=== PATIENT | male | born 1965 | race African-American/Black ===

== ENCOUNTER 2016-12-09 15:17 | Emergency (ER) | payer OTHER ==
[~2016-12-09] VITALS: Ht 190.5 cm; Wt 113.6 kg
[~2016-12-09 15:17] MED LIST: AMLO-512 PO; FLEC100 PO; HYDR-3965 PO; HYDR25TA PO; IBUP-2070 PO; LISI-661 PO; STEROIDS INJ
[2016-12-09] MEDS ORDERED: KETOROLAC TROMETHAMINE 60 MG/2 ML VIAL IM ONE (17:15)
[2016-12-09] MEDS ORDERED: HYDROCODONE/ACETAMINOPHEN 10-325 MG TABLET PO ONE (17:15)
[2016-12-09 18:36] VITALS: BP 141/82
== END 2016-12-09 19:01 | disposition home or self-care (01) ==
LOC: EMS 15:18
DX: M54.41 Lumbago with sciatica, right side (principal); M54.42 Lumbago with sciatica, left side; I10 Essential (primary) hypertension; E78.00 Pure hypercholesterolemia, unspecified
CPT/HCPCS: 96372; 99283; J1885

== ENCOUNTER 2017-01-02 05:41 | Emergency (ER) | payer OTHER ==
[~2017-01-02] VITALS: Ht 190.5 cm; Wt 111.4 kg
[2017-01-02] MEDS ORDERED: KETOROLAC TROMETHAMINE 60 MG/2 ML VIAL IM ONE (07:00)
[2017-01-02] MEDS ORDERED: OxyCODONE HCL/ACETAMINOPHEN 5-325 MG TABLET PO ONE (07:00)
[2017-01-02 07:09] VITALS: BP 132/83
== END 2017-01-02 07:25 | disposition home or self-care (01) ==
LOC: EMS 05:42
DX: T78.40XA Allergy, unspecified, initial encounter (principal); M54.41 Lumbago with sciatica, right side; G89.29 Other chronic pain; E78.00 Pure hypercholesterolemia, unspecified; I10 Essential (primary) hypertension; Z95.0 Presence of cardiac pacemaker
CPT/HCPCS: 96372; 99283; J1885

== ENCOUNTER 2017-08-25 09:09 | Emergency (ER) | payer OTHER ==
[~2017-08-25] VITALS: Ht 190.5 cm; Wt 111.0 kg
[2017-08-25] MEDS ORDERED: QUET200T PO (09:18)
[2017-08-25] MEDS ORDERED: KETOROLAC TROMETHAMINE 60 MG/2 ML VIAL IM ONE (10:30)
[2017-08-25 12:04] VITALS: BP 124/69
== END 2017-08-25 12:19 | disposition home or self-care (01) ==
LOC: EMS 09:10
DX: S62.637A Displaced fracture of distal phalanx of left little finger, initial encounter for closed fracture (principal); M25.511 Pain in right shoulder; I10 Essential (primary) hypertension; E78.00 Pure hypercholesterolemia, unspecified; Y04.0XXA Assault by unarmed brawl or fight, initial encounter; Y93.89 Activity, other specified; Y92.89 Other specified places as the place of occurrence of the external cause; Y99.8 Other external cause status
CPT/HCPCS: 29130; 73140; 96372; 99284; J1885

== ENCOUNTER 2018-01-28 03:13 | Emergency (ER) | payer OTHER ==
[~2018-01-28] VITALS: Ht 188 cm; Wt 104.5 kg
[~2018-01-28 03:13] MED LIST changes: -HYDR-3965 PO; -IBUP-2070 PO; +QUET200T PO; -STEROIDS INJ
[2018-01-28 03:15] VITALS: BP 117/77
[2018-01-28] MEDS ORDERED: ACETAMINOPHEN 500 MG TABLET PO ONE (03:30)
== END 2018-01-28 04:19 | disposition home or self-care (01) ==
LOC: EMS 03:15
DX: J02.9 Acute pharyngitis, unspecified (principal); M54.2 Cervicalgia; G89.29 Other chronic pain; E78.00 Pure hypercholesterolemia, unspecified; I10 Essential (primary) hypertension; Z95.0 Presence of cardiac pacemaker
CPT/HCPCS: 99283

== ENCOUNTER 2018-10-19 16:14 | Emergency (ER) | payer OTHER ==
[~2018-10-19] VITALS: Ht 190.5 cm; Wt 101.4 kg
[2018-10-19] MEDS ORDERED: DiphenhydrAMINE HCL 25 MG CAPSULE PO ONE (21:15)
[2018-10-19] MEDS ORDERED: ACETAMINOPHEN 500 MG TABLET PO ONE (21:15)
[2018-10-19 21:52] VITALS: BP 124/72
== END 2018-10-19 22:00 | disposition home or self-care (01) ==
LOC: EMS 16:16
DX: S76.912A Strain of unspecified muscles, fascia and tendons at thigh level, left thigh, initial encounter (principal); E78.00 Pure hypercholesterolemia, unspecified; I10 Essential (primary) hypertension; G89.29 Other chronic pain; Z95.0 Presence of cardiac pacemaker; Z79.899 Other long term (current) drug therapy; X58.XXXA Exposure to other specified factors, initial encounter; Y93.01 Activity, walking, marching and hiking; Y92.89 Other specified places as the place of occurrence of the external cause; Y99.8 Other external cause status
CPT/HCPCS: 93971

== ENCOUNTER 2021-02-08 18:47 | Emergency (ER) | payer OTHER ==
[~2021-02-08] VITALS: Ht 188 cm; Wt 109.1 kg
[~2021-02-08 18:47] MED LIST changes: +AMLO-258 PO; -AMLO-512 PO; -HYDR25TA PO; +HYDR25TA2 PO; -LISI-661 PO; +LISI-893 PO
[2021-02-08 20:05] LABS: EOSINOPHILS % (AUTO) 6.4 % (1.0-6.0); HEMATOCRIT 39.3 % (41-53); HEMOGLOBIN 12.7 g/dL (13.5-17.5); LYMPHOCYTES # (AUTO) 1.8 K/uL (1.0-4.8); LYMPHOCYTES % (AUTO) 31.2 % (22.0-44.0); MEAN CORPUSCULAR HEMOGLOBIN 25.3 pg (26.0-34.0); MEAN CORPUSCULAR HGB CONC 32.4 G/dL (31.0-37.0); MEAN CORPUSCULAR VOLUME 78 fL (80-100); MONOCYTES # (AUTO) 0.5 K/uL (0.1-1.0); MONOCYTES % (AUTO) 9.2 % (2.0-9.0); NEUTROPHILS % (AUTO) 52.2 % (40.0-70.0); PLATELET COUNT (AUTO) 255 K/uL (150-450); RED BLOOD CELL COUNT(AUTO) 5.04 MIL/uL (4.50-5.90); RED CELL DISTRIBUTION WIDTH 15.1 % (11.5-14.5)
[2021-02-08 20:07] LABS: APPEARANCE,URINE CLEAR (CLEAR); BILIRUBIN,URINE NEGATIVE (NEGATIVE); GLUCOSE, URINE (UA) NEGATIVE (NEGATIVE); KETONES,URINE NEGATIVE (NEGATIVE); LEUKOCYTE ESTERASE ,URINE NEGATIVE (NEGATIVE); NITRATE,URINE NEGATIVE (NEGATIVE); OCCULT BLOOD,URINE NEGATIVE (NEGATIVE); PROTEIN,URINE NEGATIVE (NEGATIVE)
[2021-02-08 20:16] LABS: ANION GAP 8 mmol/L (8-16); CALCIUM, TOTAL 9.1 mg/dL (8.8-10.5); CARBON DIOXIDE 29 mmol/L (22-29); CHLORIDE 104 mmol/L (98-107); CREATININE 1.12 mg/dL (0.60-1.30); GLOMERULAR FILTR. RATE CALC > 60 mL/min (>60); GLUCOSE,RANDOM 115 mg/dL (70-110); POTASSIUM 3.7 mmol/L (3.5-5.1); SODIUM SERUM 141 mmol/L (136-145); UREA NITROGEN, BLOOD 11 mg/dL (7-18)
[2021-02-08 20:24] LABS: ALANINE AMINOTRANSFERASE 29 U/L (12-78); ALBUMIN 3.6 g/dL (3.4-5.0); ALKALINE PHOSPHATASE 68 U/L (46-116); ASPARTATE AMINOTRANSFERASE 13 U/L (15-37); BILIRUBIN,TOTAL 0.2 mg/dL (0.1-1.0); LIPASE 122 U/L (73-393); TOTAL PROTEIN, SERUM 7.6 g/dL (6.4-8.2)
[2021-02-08 22:23] VITALS: BP 139/77
== END 2021-02-08 22:36 | disposition home or self-care (01) ==
LOC: EMS 18:48
DX: R19.7 Diarrhea, unspecified (principal); I10 Essential (primary) hypertension; E78.00 Pure hypercholesterolemia, unspecified; G89.29 Other chronic pain; Z79.899 Other long term (current) drug therapy
CPT/HCPCS: 80053; 81003; 83690; 85025; 87045; 89055; 99283

== ENCOUNTER 2022-01-21 12:00 | Emergency (ER) | payer OTHER ==
[~2022-01-21] VITALS: Ht 190.5 cm; Wt 122.7 kg
[~2022-01-21 12:00] MED LIST changes: +HYDR-4870 PO; -HYDR25TA2 PO
[2022-01-21] MEDS ORDERED: CLIN50GE6 TP (12:53)
[2022-01-21 13:34] VITALS: BP 128/86
== END 2022-01-21 13:36 | disposition home or self-care (01) ==
LOC: EMS 12:03
DX: L08.0 Pyoderma (principal); E78.00 Pure hypercholesterolemia, unspecified; I10 Essential (primary) hypertension; R21 Rash and other nonspecific skin eruption; Z95.2 Presence of prosthetic heart valve
CPT/HCPCS: 99283; Z7502

== ENCOUNTER 2022-09-25 23:18 | Emergency (ER) | payer OTHER ==
[~2022-09-25] VITALS: Ht 190.5 cm; Wt 125.5 kg
[~2022-09-25 23:18] MED LIST changes: +ASPI-1450 PO; +ATOR40TA28 PO; +BUPR1PAT3 TP; +CEPH-558 PO; -FLEC100 PO; +FLUT16SP NASAL; -HYDR-4870 PO; -LISI-893 PO; +METO25 PO; +SILD20TA PO
[2022-09-25] MEDS ORDERED: SODIUM CHLORIDE 0.9% 1,000 ML IV ONE (23:45)
[2022-09-25] MEDS ORDERED: ONDANSETRON HCL 4 MG/2 ML VIAL IVP ONE (23:45)
[2022-09-26 00:02] LABS: COVID AG,FIA SOURCE NASAL SWAB
[2022-09-26 00:32] LABS: INFLUENZA TYPE A NEGATIVE FOR TYPE A (NEGATIVE); INFLUENZA TYPE B NEGATIVE FOR TYPE B (NEGATIVE)
[2022-09-26 00:50] LABS: BASOPHILS % (AUTO) 0.8 % (0.0-2.0); EOSINOPHILS % (AUTO) 0.2 % (1.0-6.0); HEMATOCRIT 37.7 % (41-53); HEMOGLOBIN 12.5 g/dL (13.5-17.5); LYMPHOCYTES # (AUTO) 1.2 K/uL (1.0-4.8); LYMPHOCYTES % (AUTO) 14.9 % (22.0-44.0); MEAN CORPUSCULAR HEMOGLOBIN 26.3 pg (26.0-34.0); MEAN CORPUSCULAR HGB CONC 33.3 G/dL (31.0-37.0); MEAN CORPUSCULAR VOLUME 79 fL (80-100); MONOCYTES # (AUTO) 0.4 K/uL (0.1-1.0); MONOCYTES % (AUTO) 4.7 % (2.0-9.0); NEUTROPHILS # (AUTO) 6.3 K/uL (1.8-7.7); NEUTROPHILS % (AUTO) 79.4 % (40.0-70.0); PLATELET COUNT (AUTO) 252 K/uL (150-450); RED BLOOD CELL COUNT(AUTO) 4.77 MIL/uL (4.50-5.90); RED CELL DISTRIBUTION WIDTH 16.1 % (11.5-14.5)
[2022-09-26 00:59] LABS: CARBON DIOXIDE 27 mmol/L (22-29); CHLORIDE 105 mmol/L (98-107); POTASSIUM 3.9 mmol/L (3.5-5.1); SODIUM SERUM 143 mmol/L (136-145)
[2022-09-26 01:00] LABS: ANION GAP 11 mmol/L (8-16); CALCIUM, TOTAL 9.6 mg/dL (8.8-10.5); CREATININE 1.28 mg/dL (0.60-1.30); GLOMERULAR FILTR. RATE CALC > 60 mL/min (>60); GLUCOSE,RANDOM 112 mg/dL (70-110); UREA NITROGEN, BLOOD 9 mg/dL (7-18)
[2022-09-26 01:04] LABS: ALANINE AMINOTRANSFERASE 33 U/L (12-78); ALBUMIN 3.8 g/dL (3.4-5.0); ALKALINE PHOSPHATASE 68 U/L (46-116); ASPARTATE AMINOTRANSFERASE 20 U/L (15-37); BILIRUBIN,TOTAL 0.4 mg/dL (0.1-1.0); LIPASE 70 U/L (73-393); TOTAL PROTEIN, SERUM 8.4 g/dL (6.4-8.2)
[2022-09-26] MEDS ORDERED: ONDANSETRON HCL 4 MG/2 ML VIAL IVP ONE (02:00)
[2022-09-26 02:17] LABS: APPEARANCE,URINE CLEAR (CLEAR); BILIRUBIN,URINE NEGATIVE (NEGATIVE); GLUCOSE, URINE (UA) NEGATIVE (NEGATIVE); KETONES,URINE TRACE mg/dL (NEGATIVE); LEUKOCYTE ESTERASE ,URINE NEGATIVE (NEGATIVE); NITRATE,URINE NEGATIVE (NEGATIVE); OCCULT BLOOD,URINE SMALL (NEGATIVE); PROTEIN,URINE 100-200,SEE CONFIRM mg/dL (NEGATIVE); UROBILINOGEN,URINE <=1.0 mg/dL (<=1.0)
[2022-09-26 02:23] LABS: SULFOSALICYLIC ACID,URINE 1+ (Negative)
[2022-09-26 02:26] LABS: BACTERIA,URINE None Seen /HPF (None Seen); RBC,URINE 0-2 /HPF (0-2); SQUAMOUS EPITHELIAL CELL,UR None Seen /LPF (None Seen); WBC,URINE None Seen /HPF (0-5)
[2022-09-26 03:13] VITALS: BP 148/71
[2022-09-26] MEDS ORDERED: PROM-163 PO (03:14)
== END 2022-09-26 04:05 | disposition home or self-care (01) ==
LOC: EMS 23:18
DX: R11.2 Nausea with vomiting, unspecified (principal); E78.00 Pure hypercholesterolemia, unspecified; I10 Essential (primary) hypertension; G89.29 Other chronic pain; Z96.652 Presence of left artificial knee joint; Z98.890 Other specified postprocedural states; Z20.822 Contact with and (suspected) exposure to COVID-19
CPT/HCPCS: 99285; 96374; 96361; 87426; 80053; 81001; 83690; 84484; 85025; 87804; 36415; 93005; 96376; 76700; J2405; 81002

== ENCOUNTER 2023-12-20 11:03 | Emergency (ER) | payer OTHER ==
[~2023-12-20] VITALS: Ht 190.5 cm; Wt 113.6 kg
[~2023-12-20 11:03] MED LIST changes: +AMOX1TAB16 PO; +ASPI-1444 PO; -ASPI-1450 PO; +BUPR1PAT3 TD; -BUPR1PAT3 TP; -CEPH-558 PO; +FLEC50 PO; +HYDR-4069 PO; +METR500 PO; +NALO4SPR5 NASAL; +SERT-439 PO
[2023-12-20 11:07] VITALS: BP 130/71; PULSE 94; RESP 16; TEMP 98
== END 2023-12-20 15:21 | disposition home or self-care (01) ==
LOC: EMS 11:03
DX: S00.83XA Contusion of other part of head, initial encounter (principal); M19.90 Unspecified osteoarthritis, unspecified site; F31.9 Bipolar disorder, unspecified; E78.00 Pure hypercholesterolemia, unspecified; G89.29 Other chronic pain; I11.9 Hypertensive heart disease without heart failure; Z96.653 Presence of artificial knee joint, bilateral; Z98.890 Other specified postprocedural states; W19.XXXA Unspecified fall, initial encounter; Y93.89 Activity, other specified; Y92.89 Other specified places as the place of occurrence of the external cause; Y99.8 Other external cause status
CPT/HCPCS: 70140; 72040; 99284; Z7502